=== PATIENT | female | born 1995 | race Caucasian/White ===

== ENCOUNTER 2016-08-06 15:52 | Emergency (ER) | payer BC ==
[2016-08-06 16:54] VITALS: BP 107/68
--- NOTE | 2016-08-06 17:00 | UC ---
Complaint Female HPI - HPI Summary HPI Summary: pain buring urgency and frequency began this morning, no fevers, chills, nausea vomiting or night sweats - History Of Current Complaint Chief Complaint: UCGU Stated Complaint: URINARY Time Seen by Provider: 08/06/16 16:58 Hx Obtained From: Patient Hx Last Menstrual Period: 07/26/16 ?: No Onset/Duration: Sudden Onset, Lasting Days - 1, Still Present Timing: Constant Severity Initially: Moderate Severity Currently: Moderate Pain Intensity: 5 Pain Scale Used: 0-10 Numeric Character: Burning Aggravating Factor(s): Urination Alleviating Factor(s): Meds - Azo Associated Signs And Symptoms: Negative: Fever, Back Pain, Nausea, Vomiting(# Of Episodes =), Genital Swelling, Retained Foregin Body (Specify) Related Hx: Similar Episode/Dx as: - 18 moths ago UTI - Allergies/Home Medications Allergies/Adverse Reactions: Allergies Allergy/AdvReac Type Severity Reaction Status Date / Time No Known Allergies Allergy Verified 08/06/16 16:47 Home Medications: Home Medications Phenazopyridine HCl [Azo Urinary Pain Relief] 2 tab PO ONCE 08/06/16 [History Confirmed 08/06/16] PMH/Surg Hx/FS Hx/Imm Hx Previously Healthy: No Endocrine History Of: Reports: Thyroid Disease - HYPO Respiratory History Of: Reports: Asthma - SEASONAL - Surgical History Surgical History: Yes Surgery Procedure, Year, and Place: TONSILECTOMY - Family History Known Family History: Positive: Hypertension - Social History Occupation: Student Lives: With Family Alcohol Use: None Substance Use Type: None Smoking Status (MU): Never Smoked Tobacco Have You Smoked in the Last Year: No Review of Systems Constitutional: Negative Skin: Negative Eyes: Negative ENT: Negative Respiratory: Negative Cardiovascular: Negative Gastrointestinal: Negative Genitourinary: Dysuria, Frequency, Urgency Motor: Negative Neurovascular: Negative Musculoskeletal: Negative Neurological: Negative Psychological: Negative All Other Systems Reviewed And Are Negative: Yes Physical Exam Triage Information Reviewed: Yes Appearance: Well-Appearing, No Pain Distress, Well-Nourished Vital Signs: Initial Vital Signs Temp 98.7 F 08/06/16 16:48 Pulse 87 08/06/16 16:48 Resp 16 08/06/16 16:48 BP 107/68 08/06/16 16:48 Pulse Ox 98 08/06/16 16:48 Vital Signs Reviewed: Yes Eye Exam: Normal Eyes: Positive: Conjunctiva Clear, Conjunctiva Inflamed ENT Exam: Normal ENT: Positive: Normal ENT inspection, Hearing grossly normal. Negative: Nasal congestion, Nasal drainage, Trismus, Muffled/hoarse voice Dental Exam: Normal Neck exam: Normal Neck: Positive: Supple, Nontender, No Lymphadenopathy Respiratory Exam: Normal Respiratory: Positive: Chest non-tender, Lungs clear, Normal breath sounds, No respiratory distress, No accessory muscle use Cardiovascular Exam: Normal Cardiovascular: Positive: RRR, No Murmur, Pulses Normal, Brisk Capillary Refill Abdominal Exam: Normal Abdomen Description: Negative: CVA Tenderness (R), CVA Tenderness (L) Bowel Sounds: Positive: Present Musculoskeletal Exam: Normal Musculoskeletal: Positive: Strength Intact, ROM Intact, No Edema Neurological Exam: Normal Neurological: Positive: Alert, Muscle Tone Normal Psychological Exam: Normal Skin Exam: Normal Complaint Female Dx - Course Course Of Treatment: culture urine, continue Azo, Macrobid BID for 10 dats follow with pcp [facility] or her for any concerns , worsening symptoms - Differential Dx/Diagnosis Differential Diagnosis/HQI/PQRI: Renal Colic, Ureteral Stone, Urinary Tract Infection Provider Diagnoses: UTI Discharge - Discharge Plan Condition: Stable Disposition: HOME Prescriptions: Nitrofurantoin Monohyd Macro [Macrobid] 100 mg PO BID #20 cap Patient Education Materials: Phenazopyridine (By mouth), Urinary Tract Infection in Women (ED) Referrals: Non Staff,Doctor [Primary Care Provider] - Additional Instructions: Follow with your [facility] or return as needed for any continuing issues. To emergency department for back pain, fever, nausea or vomiting.
== END 2016-08-06 17:23 | disposition home or self-care (01) ==
LOC: UCCORT 15:52
DX: N39.0 Urinary tract infection, site not specified (principal); Z87.440 Personal history of urinary (tract) infections; E03.9 Hypothyroidism, unspecified
CPT/HCPCS: 87077; 87086; 87186; 99212; G0463

== ENCOUNTER 2017-05-27 09:13 | Emergency (ER) | payer BC ==
[2017-05-27 09:29] VITALS: BP 115/76
--- NOTE | 2017-05-27 09:46 | UC ---
Respiratory Complaint HPI - HPI Summary HPI Summary: Cough congestion and fever yesterday. No significant myalgias. No prior medical disease. Seasonal allergies in the Spring. - History of Current Complaint Chief Complaint: UCGeneralIllness Stated Complaint: COUGH,EAR PAIN Time Seen by Provider: 05/27/17 09:36 Hx Obtained From: Patient Hx Last Menstrual Period: 05/18/17 Onset/Duration: Gradual Onset, Lasting Hours Severity Initially: Moderate Severity Currently: Moderate Pain Intensity: 3 Character: Cough: Nonproductive Aggravating Factors: Deep Breaths, Recumbent Position Alleviating Factors: Upright Position, Spontaneous Resolution Associated Signs And Symptoms: Positive: Fever, Chills, URI, Nasal Congestion. Negative: Hemoptysis, Dizziness, Calf Pain, Calf Swelling - Allergies/Home Medications Allergies/Adverse Reactions: Allergies Allergy/AdvReac Type Severity Reaction Status Date / Time No Known Allergies Allergy Verified 05/27/17 09:26 Home Medications: Home Medications Levothyroxine TAB* [Synthroid TAB*] 50 mcg PO DAILY 05/27/17 [History Confirmed 05/27/17] PMH/Surg Hx/FS Hx/Imm Hx Previously Healthy: Yes - Surgical History Surgical History: Yes Surgery Procedure, Year, and Place: TONSILECTOMY - Family History Known Family History: Positive: Hypertension - Social History Occupation: Student Alcohol Use: Rare Substance Use Type: None Smoking Status (MU): Never Smoked Tobacco Have You Smoked in the Last Year: No - Immunization History Most Recent Influenza Vaccination: yes 2016/2017 Review of Systems Constitutional: Fever ENT: Sinus Congestion Respiratory: Cough All Other Systems Reviewed And Are Negative: Yes Physical Exam Triage Information Reviewed: Yes Appearance: Well-Appearing, No Pain Distress, Well-Nourished Vital Signs: Initial Vital Signs Temp 98.7 F 05/27/17 09:24 Pulse 99 05/27/17 09:24 Resp 18 05/27/17 09:24 BP 115/76 05/27/17 09:24 Pulse Ox 99 05/27/17 09:24 Vital Signs Reviewed: Yes ENT: Positive: Pharyngeal erythema, Nasal congestion, TMs normal, Uvula midline. Negative: Nasal drainage, TM bulging, TM dull, TM red, Tonsillar swelling, Tonsillar exudate, Sinus tenderness Neck: Positive: Supple, Nontender, No Lymphadenopathy Respiratory: Positive: Lungs clear, Normal breath sounds, No respiratory distress, No accessory muscle use. Negative: Respiratory distress, Decreased breath sounds, Accessory muscle use, Crackles, Rhonchi, Stridor, Wheezing Cardiovascular: Positive: No Murmur, Pulses Normal, Brisk Capillary Refill Abdomen Description: Positive: No Organomegaly, Soft. Negative: Distended, Guarding Musculoskeletal: Positive: Strength Intact, ROM Intact, No Edema Neurological: Positive: Muscle Tone Normal. Negative: Fatigued Psychological: Positive: Age Appropriate Behavior Skin: Negative: rashes UC Diagnostic Evaluation - Laboratory O2 Sat by Pulse Oximetry: 99 Respiratory Course/Dx - Course Course Of Treatment: This is not typical of the flu. If it is, she has no infants or exposure to people at risk and she herself is typically healthy. - Differential Dx/Diagnosis Provider Diagnoses: URI Discharge - Discharge Plan Condition: Good Disposition: HOME Patient Education Materials: Upper Respiratory Infection (DC) Forms: *School Release Referrals: Non Staff,Doctor [Primary Care Provider] - Additional Instructions: Tea with honey and lemon, decongestants like mucinex d, tylenol and motrin and rest.
== END 2017-05-27 09:50 | disposition home or self-care (01) ==
LOC: UCCORT 09:13
DX: J06.9 Acute upper respiratory infection, unspecified (principal)
CPT/HCPCS: 99211; G0463

== ENCOUNTER 2017-07-18 17:01 | Emergency (ER) | payer BC ==
[2017-07-18 17:22] VITALS: BP 135/87
--- NOTE | 2017-07-18 17:42 | UC ---
Lower Extremity/Ankle HPI - HPI Summary HPI Summary: Pt reports drinking alcohol on 07/16/17 and slipping on ice and falling on right ankle. Pt c/o worsening pain, limited weight bearing. - History of Current Complaint Chief Complaint: UCLowerExtremity Stated Complaint: RIGHT ANKLE INJURY Time Seen by Provider: 07/18/17 17:28 Hx Obtained From: Patient Hx Last Menstrual Period: 06/21/17 on BCP ?: No Onset/Duration: Sudden Onset, Lasting Days, Still Present Severity Initially: Moderate Severity Currently: Mild Pain Intensity: 5 Aggravating Factor(s): Standing, Ambulation Alleviating Factor(s): Rest, Elevation, Ice Able to Bear Weight: Yes - minimal - Risk Factors Gout Risk Factors: Negative DVT Risk Factors: Negative Septic Arthritis Risk Factor: Negative - Allergies/Home Medications Allergies/Adverse Reactions: Allergies Allergy/AdvReac Type Severity Reaction Status Date / Time No Known Allergies Allergy Verified 07/18/17 17:22 PMH/Surg Hx/FS Hx/Imm Hx Previously Healthy: Yes - Surgical History Surgical History: Yes Surgery Procedure, Year, and Place: TONSILECTOMY - Family History Known Family History: Positive: Hypertension - Social History Occupation: Student Lives: Dormitory/Roommates Alcohol Use: Occasionally Substance Use Type: None Smoking Status (MU): Never Smoked Tobacco Have You Smoked in the Last Year: No - Immunization History Most Recent Influenza Vaccination: yes Review of Systems Constitutional: Negative Skin: Bruising - right foot, scattered Eyes: Negative ENT: Negative Respiratory: Negative Cardiovascular: Negative Gastrointestinal: Negative Genitourinary: Negative Motor: Decreased ROM - right ankle Neurovascular: Negative Musculoskeletal: Arthralgia, Decreased ROM - right ankle, Edema - lateral malleolous, right side, Myalgia Neurological: Negative Psychological: Negative Is Patient Immunocompromised?: No All Other Systems Reviewed And Are Negative: Yes Physical Exam Triage Information Reviewed: Yes Appearance: Well-Appearing Vital Signs: Initial Vital Signs Temp 98.2 F 07/18/17 17:17 Pulse 82 07/18/17 17:17 Resp 18 07/18/17 17:17 BP 135/87 07/18/17 17:17 Pulse Ox 99 07/18/17 17:17 Vital Signs Reviewed: Yes Eye Exam: Normal ENT Exam: Normal Neck exam: Normal Respiratory Exam: Normal Respiratory: Positive: No respiratory distress Musculoskeletal Exam: Other Musculoskeletal: Positive: Strength Limited @, ROM Limited @, Edema @ - right ankle, lateral malleolous Neurological Exam: Normal Psychological Exam: Normal Skin Exam: Normal Diagnostics - Radiology No standard instances Radiology Interpretation Completed By: Radiologist - IMPRESSION: SOFT TISSUE SWELLING. NO ACUTE OSSEOUS INJURY. IF SYMPTOMS PERSIST, RECOMMEND REPEAT IMAGING. Lower Extremity Course/Dx - Differential Dx/Diagnosis Differential Diagnosis/HQI/PQRI: Fracture (Closed) Discharge - Discharge Plan Referrals: Non Staff,Doctor [Primary Care Provider] -
--- NOTE | 2017-07-18 17:55 | RAD ---
HISTORY: Fall 2 nights ago, intoxication, right ankle pain COMPARISONS: None VIEWS: 3, Frontal, lateral, and oblique views of the right ankle FINDINGS: BONE DENSITY: Normal. BONES: There is no displaced fracture. JOINTS: There is no arthropathy. ALIGNMENT: There is no dislocation. SOFT TISSUES: There is mild soft tissue swelling.. OTHER FINDINGS: None. IMPRESSION: SOFT TISSUE SWELLING. NO ACUTE OSSEOUS INJURY. IF SYMPTOMS PERSIST, RECOMMEND REPEAT IMAGING.
== END 2017-07-18 18:14 | disposition home or self-care (01) ==
LOC: UCCORT 17:01
DX: M25.571 Pain in right ankle and joints of right foot (principal); W00.0XXA Fall on same level due to ice and snow, initial encounter; Y92.9 Unspecified place or not applicable
CPT/HCPCS: 99212; G0463

== ENCOUNTER 2018-03-04 14:28 | Emergency (ER) | payer BC ==
[2018-03-04 15:08] VITALS: BP 118/75
--- NOTE | 2018-03-04 15:38 | UC ---
Respiratory Complaint HPI - HPI Summary HPI Summary: Patient presents to urgent care reporting approximately 10 days ago had head and sinus congestion as well as cough as well as cough. Patient states she was seen by her primary care provider out of town. Patient states she had several blood tests which were normal. Patient states she was put on Z-Jake for sinus infection. Patient states her sinuses seem to improve. Patient is back here at school. Patient lives in the apartment that is not humidify. Patient states she's had the windows open. Patient states today she was at school when she developed a nosebleed. Patient's never had one before. However, patient states her teeth always. When she brushes them. Patient states she was able to stop the nosebleed. Patient states her nose feels stuffy since this time. Patient states approximately 10-15 minutes later patient coughed and spit up a blood clot. Patient state she got anxious, called her primary, who was directed her to come here for chest x-ray. Patient states her breathing feels better. Patient states otherwise she feels much improved. Patient did change her toothbrush and wash her pillowcase. Patient denies any fevers, chills, rash. No shortness of breath. No pleuritic pain. No nausea vomiting. Patient without any complaints at the time of my evaluation. LMP finished yesterday Pt's medications reviewed this visit - History of Current Complaint Chief Complaint: UCRespiratory Stated Complaint: BLOODY NOSE,COUGH Time Seen by Provider: 03/04/18 15:21 Hx Obtained From: Patient Hx Last Menstrual Period: one week ?: No Onset/Duration: Gradual Onset, Lasting Days Timing: Constant Severity Initially: Mild Severity Currently: None Pain Intensity: 0 Pain Scale Used: 0-10 Numeric Character: Cough: Productive - Blood clot today. Patient states that was followin epistaxis Associated Signs And Symptoms: Positive: Hemoptysis - x 1, URI, Nasal Congestion - Allergies/Home Medications Allergies/Adverse Reactions: Allergies Allergy/AdvReac Type Severity Reaction Status Date / Time No Known Allergies Allergy Verified 03/04/18 14:53 Home Medications: Home Medications Vitamin C, Vitamin B1, Zinc, 1 dose PO DAILY 03/04/18 [History Confirmed ] Zpak 1 tab PO DAILY 03/04/18 [History Confirmed 03/04/18] PMH/Surg Hx/FS Hx/Imm Hx Previously Healthy: Yes - Surgical History Surgical History: Yes Surgery Procedure, Year, and Place: TONSILECTOMY - Family History Known Family History: Positive: Hypertension - Social History Occupation: Student Lives: Dormitory/Roommates Alcohol Use: Occasionally Substance Use Type: None Smoking Status (MU): Never Smoked Tobacco Have You Smoked in the Last Year: No - Immunization History Most Recent Influenza Vaccination: yes 2016/2017 Review of Systems All Other Systems Reviewed And Are Negative: Yes Skin: Positive: Negative ENT: Positive: Epistaxis, Sinus Congestion. Negative: Sore Throat, Ear Ache, Sinus Pain/Tenderness Respiratory: Positive: Cough - 1 episode of hemoptysis s/p epistaxis. Negative : Shortness Of Breath Physical Exam - Summary Physical Exam Summary: Vital Signs Reviewed: Yes A+Ox3, no distress Eyes: Conjunctiva Clear, BEATRIZ. EOM intact and full ENT: Hearing grossly normal TM x 2 clear, turbinates inflammed and boggy, scant dried blood left nares. + mild blood tinged PND mmoist, uvula midline, no exudate, no erythema Neck: Positive: Supple Respiratory: Positive: No respiratory distress, No accessory muscle use + CTA throughout no w/r Cardiovascular: RRR nl s1, s2 no m/r CBT <2 sec abd soft + BS nt/nd no guarding, no distension Musculoskeletal Exam: FITZGERALD x 4 without difficulty Strength Intact, ROM Intact Neurological: Positive: Alert, + sensation throughout Psychological: Positive: Normal Response To Family Skin: Positive: no rash, no ecchymosis Triage Information Reviewed: Yes Vital Signs: Initial Vital Signs Temp 98.4 F 03/04/18 14:56 Pulse 87 03/04/18 14:56 Resp 16 03/04/18 14:56 BP 118/75 03/04/18 14:56 Pulse Ox 100 03/04/18 14:56 UC Diagnostic Evaluation - Laboratory O2 Sat by Pulse Oximetry: 100 - Radiology Radiology Interpretation Completed By: Radiologist - Patient Name: VIVIAN LANTIGUA Medical Record#: [id number] Re-Evaluation - Re-Evaluation First Eval Change: Unchanged - No recurrent bleeding reviewed epistaxis control with pt humidified will f/u if labs abnormal pt quesitons answered notes written Respiratory Course/Dx - Course Course Of Treatment: pt with recent evluation and treatment of sinitis. pt states was feeling better, but today develope epistaxis. 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 Pt states teeth frequently bleeding with brushing. Pt had blood work last week from her primary was all normal. Patient states presently 15 minutes after her nosebleed today she coughed this blood clot. Patient states she called her doctor who recommended she get a chest x-ray. Patient states she feels actually fine at present but states her nose has a little bit congested. Patient coughed up a blood clot more than 2 hours ago no recurrence. Patient states she was in the house with the window open does not humidify. Patient did do good secretion hygiene. We'll check a chest x-ray as well as redraw CBC to include platelets. Recommend patient use saline nasal spray. Recommend patient humidify the air where she sleeps. Suspect the blood clot was postnasal drip with some blood tinged postnasal drip is noted on today's exam. Vital signs are stable. Patient to go immediately to emergency department with recurrence of epistaxis that is not controlled coughing up blood shortness of breath or any other concerns. Patient states understanding and agreement. - Differential Dx/Diagnosis Provider Diagnoses: epistaxis - resolved. cough with hemoptysis x 1 Discharge - Sign-Out/Discharge Documenting (check all that apply): Patient Departure All imaging exams completed and their final reports reviewed: Yes - Discharge Plan Condition: Stable Disposition: HOME Patient Education Materials: Nosebleed (ED) Forms: *Gen. Provider Communication, *School Release Referrals: No Primary Care Phys,NOPCP [Primary Care Provider] - Additional Instructions: The doctor that evaluated you today thinks that the blood she coughed up with her that your bloody nose. However, because he mentioned he sometimes bleeding from her gums blood work was checked today. This results will come back tomorrow. Visiting concerning results to receive a phone call from a care steam box hand. Is recommended to humidify the air in the room or UC. You can boil water, on hot steam shower, use a humidifier, or bubbles water next to the heat register to evaporate. Is recommended to use a saline nasal spray to keep the mucous membranes moist. If you develop another nosebleed, leaning forward, squeezed tightly on the soft front part of your nose. Hold direct pressure for 5 minutes. If you continue to bleed after 5 minutes continued hold for another 5. If unable to control her nosebleed is recommended to emergency department. A few have recurrent blood in urine sputum, fevers, shortness of breath, chest pain, vomiting blood, or any other concerns is recommended to go immediately to emergency department. It is okay to take [id number] decongestant such as Claritin-D, Sudafed, Sherry-D, Zyrtec-D Contact your doctor or return with questions or concerns - Billing Disposition and Condition Condition: STABLE Disposition: Home
[2018-03-04 18:04] LABS: ABS Basophils 0.1 10^3/ul (0-0.2); ABS Eosinophils 0.3 10^3/ul (0-0.6); ABS Lymphocytes 3.1 10^3/ul (1.0-4.8); ABS Monocytes 0.8 10^3/ul (0-0.8); ABS Neutrophils 5.8 10^3/ul (1.5-7.7); ABS Nucleated RBC 0 10^3/ul; Eosinophil % 2.8 % (0-6); Hematocrit 40 % (35-47); Hemoglobin 13.8 g/dl (12.0-16.0); Lymphocyte % 30.7 % (25-47); Mean Corpuscular HGB Conc 35 g/dl (31-36); Mean Corpuscular Hemoglobin 29 pg (27-31); Mean Corpuscular Volume 83 fL (80-97); Mean Platelet Volume 7.5 fL (7.4-10.4); Nucleated Red Blood Cells % 0.1; Platelet Count 363 10^3/ul (150-450); Red Blood Count 4.82 10^6/ul (4.00-5.40); Red Cell Distribution Width 13 % (10.5-15); White Blood Count 9.9 10^3/ul (3.5-10.8)
== END 2018-03-04 16:40 | disposition home or self-care (01) ==
LOC: UCCORT 14:28
DX: R05 Cough (principal); R04.2 Hemoptysis
CPT/HCPCS: 36415; 71046; 85025; 99211; G0463